=== PATIENT | female | born 1960 | race Caucasian/White ===

== ENCOUNTER 2019-05-16 12:03 | Emergency (ER) | payer OTHER ==
[~2019-05-16] VITALS: Ht 167.6 cm; Wt 104.3 kg
[~2019-05-16 12:03] MED LIST: AUGMENTIN 875875 MG PO; AZELASTINE HCL6 ML; AZITHROMYCIN 2250 MG PO; BREO ELLIPTA 11 EACH INH; FLEXERIL PO; INCRUSE ELLI62.5 MCG INH; KEFLEX500 MG PO; LEVAQUIN 750 M750 MG PO; MEDROLDOSEPACK PO; METFORMIN HCL500 MG PO; NOHOMEMEDICATIONS; OSELB75 PO; PREDNISONE 10 M10 MG PO; PREDNISONE 20 M20 MG PO; SINGULAIR 10 MG10 M1 PO; ULTRAM 50MG TAB50 MG PO; VENTOLIN HFA 1818 GM INH
[2019-05-16] MEDS ORDERED: NORCO 5-325 TA1 EAC1 PO (14:38)
[2019-05-16 15:11] VITALS: BP 148/88
== END 2019-05-16 15:15 | disposition home or self-care (01) ==
LOC: M.ERS 12:03
DX: S42.292A Other displaced fracture of upper end of left humerus, initial encounter for closed fracture (principal); M06.9 Rheumatoid arthritis, unspecified; J44.9 Chronic obstructive pulmonary disease, unspecified; J96.10 Chronic respiratory failure, unspecified whether with hypoxia or hypercapnia; F17.210 Nicotine dependence, cigarettes, uncomplicated; Z87.01 Personal history of pneumonia (recurrent); Z88.6 Allergy status to analgesic agent; Z88.8 Allergy status to other drugs, medicaments and biological substances; Z98.51 Tubal ligation status; W01.0XXA Fall on same level from slipping, tripping and stumbling without subsequent striking against object, initial encounter; Y93.89 Activity, other specified; Y92.89 Other specified places as the place of occurrence of the external cause; Y99.8 Other external cause status